=== PATIENT | male | born 1975 | race Two or more races ===

== ENCOUNTER 2017-09-02 12:50 | Emergency (ER) | payer BC ==
[2017-09-02 13:08] VITALS: BP 114/74
--- NOTE | 2017-09-02 14:04 | UC ---
Rectal Pain HPI - HPI Summary HPI Summary: 41 yo male has passed blood with his stool the past 4 days Sometimes just a few drops of BRB on stool Sometimes red streaks of blood No pain with BMs No blood on toilet paper vague poorly localized abd mild discomfort - History Of Current Complaint Chief Complaint: UCGI Stated Complaint: ABD PAIN BLOOD IN STOOL Time Seen by Provider: 09/02/17 13:34 Hx Obtained From: Patient Onset/Duration: Gradual Onset Severity Initially: Mild Severity Currently: Mild Pain Intensity: 0 Pain Scale Used: 0-10 Numeric Location Of Pain: (No Pain) Aggravating Factor(s): Bowel Movement Associated Signs And Symptoms: Positive: Blood-Streaked Stool. Negative: Black Tarry Stool, Blood W/O Stool, External Hemorrhoid, Diarrhea, Constipation, Discharge Related History: Hemorrhoids - Allergies/Home Medications Allergies/Adverse Reactions: Allergies Allergy/AdvReac Type Severity Reaction Status Date / Time No Known Allergies Allergy Verified 09/02/17 13:08 Home Medications: Home Medications NK [No Home Medications Reported] 09/02/17 [History Confirmed 09/02/17] PMH/Surg Hx/FS Hx/Imm Hx Previously Healthy: Yes - Family History Known Family History: Positive: Hypertension, Diabetes, Other - liver Ca dad, breast Ca mom - Social History Alcohol Use: None Substance Use Type: None Smoking Status (MU): Never Smoked Tobacco Review of Systems Constitutional: Negative Skin: Negative Eyes: Negative ENT: Negative Respiratory: Negative Cardiovascular: Negative Gastrointestinal: Negative Genitourinary: Negative Motor: Negative Neurovascular: Negative Musculoskeletal: Negative Neurological: Negative Psychological: Negative Is Patient Immunocompromised?: No All Other Systems Reviewed And Are Negative: Yes Physical Exam Triage Information Reviewed: Yes Appearance: Well-Appearing, No Pain Distress, Well-Nourished Vital Signs: Initial Vital Signs Temp 97.9 F 09/02/17 13:05 Pulse 79 09/02/17 13:05 Resp 16 09/02/17 13:05 BP 114/74 09/02/17 13:05 Pulse Ox 99 09/02/17 13:05 Vital Signs Reviewed: Yes Eyes: Positive: Conjunctiva Clear ENT: Positive: Hearing grossly normal. Negative: Nasal congestion, Nasal drainage, Trismus, Muffled voice, Hoarse voice, Dental tenderness Neck: Positive: Supple, Nontender Respiratory: Positive: Lungs clear, Normal breath sounds, No respiratory distress, No accessory muscle use Cardiovascular: Positive: RRR, No Murmur Musculoskeletal: Positive: ROM Intact, No Edema Neurological: Positive: Alert Psychological Exam: Normal Skin Exam: Normal Rectal Pain Course/Dx - Differential Dx/Diagnosis Provider Diagnoses: rectal bleeding of uncertain cause Discharge - Discharge Plan Condition: Stable Disposition: HOME Patient Education Materials: Rectal Bleeding (ED) Referrals: Td Reese MD [Medical Doctor] - As Soon As Possible (or one of his partners (Dr Talbot or Dr. Murillo)) Additional Instructions: I suggest you see a security infrastructure engineer and would like to refer you to [facility] ED for new or worsening symptoms
== END 2017-09-02 14:00 | disposition home or self-care (01) ==
LOC: UCEAST 12:50
DX: K62.5 Hemorrhage of anus and rectum (principal)
CPT/HCPCS: 99201; G0463

== ENCOUNTER 2017-12-20 17:11 | Emergency (ER) | payer BC ==
[2017-12-20 17:19] VITALS: BP 125/76
[2017-12-20] MEDS ORDERED: Lidocaine 1% INJ* 10 MG/ML 30 ML SDV INJ ONE (17:21)
[2017-12-20] MEDS ORDERED: Lidocaine 1% MPF* 2 ML VIAL ONE (17:29)
--- NOTE | 2017-12-20 17:32 | ED ---
Upper Extremity Pain - HPI Summary HPI Summary: 42M presents with right thumb redness and swelling for 4 days. It started near the nail of his thumb. The redness and swelling at the tip of his thumb has gotten worst. no injury. no fever. no streaking. no numbness or tingling. no history of mrsa. he does clip nails short. - History of Current Complaint Chief Complaint: UCSkin Stated Complaint: THUMB PAIN Time Seen by Provider: 12/20/17 17:20 - Allergies/Home Medications Allergies/Adverse Reactions: Allergies Allergy/AdvReac Type Severity Reaction Status Date / Time No Known Allergies Allergy Verified 12/20/17 17:19 Home Medications: Home Medications Ibuprofen TAB* [Advil TAB*] 200 mg PO ONCE 12/20/17 [History Confirmed 12/20/17] PMH/Surg Hx/FS Hx/Imm Hx Endocrine/Hematology History: Denies: Hx Anticoagulant Therapy Cardiovascular History: Denies: Hx Cardiac Arrest Infectious Disease History: No Infectious Disease History: Denies: Traveled Outside the [place] in Last 30 Days - Family History Known Family History: Positive: Hypertension, Diabetes, Other - liver Ca dad, breast Ca mom - Social History Alcohol Use: None Substance Use Type: Reports: None Smoking Status (MU): Never Smoked Tobacco Review of Systems Negative: Fever Negative: Chest Pain Negative: Shortness Of Breath Positive: Edema - right thumb near nailbed Positive: Rash All Other Systems Reviewed And Are Negative: Yes Physical Exam Triage Information Reviewed: Yes Vital Signs On Initial Exam: Initial Vitals Temp Pulse Resp BP Pulse Ox 97.9 F 61 12 125/76 100 12/20/17 17:16 12/20/17 17:16 12/20/17 17:16 12/20/17 17:16 12/20/17 17:16 Vital Signs Reviewed: Yes Appearance: Positive: Well-Appearing Skin: Positive: Other - paronychia to right thumb Head/Face: Positive: Normal Head/Face Inspection Eyes: Positive: Normal, Conjunctiva Clear Respiratory/Lung Sounds: Positive: Clear to Auscultation, Breath Sounds Present Cardiovascular: Positive: Normal, RRR Musculoskeletal: Positive: Strength/ROM Intact - right thumb, Other - capillary refill<2secs Neurological: Positive: Normal Psychiatric: Positive: Normal Procedures - Incision and Drainage Site: right thumb Anesthesia: Digital Instrument(s): Scalpel Diagnostics - Vital Signs Vital Signs Temp Pulse Resp BP Pulse Ox 12/20/17 17:16 97.9 F 61 12 125/76 100 - Laboratory Lab Statement: Any lab studies that have been ordered have been reviewed, and results considered in the medical decision making process. Course/Dx - Course Course Of Treatment: 42M presents with right thumb redness and swelling for 4 days. It started near the nail of his thumb. The redness and swelling at the tip of his thumb has gotten worst. no injury. no fever. no streaking. no numbness or tingling. no history of mrsa. he does clip nails short. on exam has paronychia of right thumb. I&D area and did not get much drainage and placed on keflex and bactrim. patient understand and agrees with plan. - Diagnoses Differential Diagnosis/HQI/PQRI: Positive: Other - cellulitis, paronychia Provider Diagnoses: Paronychia Discharge - Sign-Out/Discharge Documenting (check all that apply): Discharge - Discharge Plan Condition: Good Disposition: HOME Prescriptions: Cephalexin CAP* [Keflex CAP*] 500 mg PO BID #20 cap Sulfamethox/Trimethoprim DS* [Bactrim DS 800/160 TAB*] 1 tab PO BID #20 tab Patient Education Materials: Paronychia (ED) Referrals: No Primary Care Phys,NOPCP [Primary Care Provider] - Additional Instructions: Do warms soaks of area at least twice a day Take both antibiotics twice a day for 10 days Follow up with primary within 5 days Take tyenlol or ibuprofen for pain every 6 hours Return to ED if develop any new or worsening symptoms - Billing Disposition and Condition Condition: GOOD Disposition: HOME
[2017-12-20] MEDS ORDERED: Lidocaine 1% MPF* 2 ML VIAL INJ ONE (17:34)
== END 2017-12-20 17:50 | disposition home or self-care (01) ==
LOC: UCEAST 17:11
DX: L03.011 Cellulitis of right finger (principal)
CPT/HCPCS: 10060; 99212; G0463